=== PATIENT | female | born 1965 | race Caucasian/White ===

== ENCOUNTER 2016-06-08 22:33 | Inpatient (IN) | payer MEDICARE, MEDICAID ==
[~2016-06-08] VITALS: Ht 170.2 cm; Wt 131.6 kg
[2016-06-08] MEDS ORDERED: CEFTRIAXONE 1 GM VIAL ONE (23:55)
[2016-06-08] MEDS ORDERED: SODIUM CHLORIDE 0.9% 100 ML IV ONE (23:55)
[2016-06-09] VITALS (20 sets, daily range): BP systolic 115–180; RESP 13–22; TEMP 98–98.6; Ht 170.2 cm; Wt 131.6 kg
[2016-06-09] MEDS ORDERED: VANCOMYCIN 2,000 MG in SODIUM CHLORIDE 0.9% 500 ML IV ONE (00:29)
[2016-06-09] MEDS ORDERED: LEVOFLOXACIN 750 MG/150 ML 150 ML IV ONE (03:40)
[2016-06-09] MEDS ORDERED: GLUCAGON 1 MG VIAL IM PRN (07:00)
[2016-06-09] MEDS ORDERED: ACETAMINOPHEN 325 MG TAB PO PRN (07:00)
[2016-06-09] MEDS ORDERED: PHARMACY TO DOSE VANCOMYCIN IV SCH (07:00)
[2016-06-09] MEDS ORDERED: PHARMACY TO DOSE LEVAQUIN IV SCH (07:00)
[2016-06-09] MEDS ORDERED: DEXTROSE 50% SYRINGE 50 ML IV PRN (07:00)
[2016-06-09] MEDS ORDERED: BACITRACIN 50,000 UNITS INJ IRRIG ONE ×2 (07:45→10:41)
[2016-06-09] MEDS ORDERED: GLYCOPYRROLATE 0.2 MG/ML VIAL IV ONE ×3 (07:47→14:55)
[2016-06-09] MEDS ORDERED: ROCURONIUM 50 MG VIAL IV ONE ×2 (07:47→10:45)
[2016-06-09] MEDS ORDERED: ONDANSETRON 4 MG VIAL IV PUSH ONE ×2 (07:47→10:45)
[2016-06-09] MEDS ORDERED: FENTANYL 100 MCG/2 ML AMP IV ONE ×2 (07:47→10:45)
[2016-06-09] MEDS ORDERED: PROPOFOL 20 ML PER ML IV ONE ×2 (07:47→10:45)
[2016-06-09] MEDS ORDERED: NEOSTIGMINE 10 MG/10 ML VIAL IV ONE ×2 (07:47→10:45)
[2016-06-09] MEDS ORDERED: SODIUM CHLORIDE 0.9% 1,000 ML IV SCH (08:20)
[2016-06-09] MEDS ORDERED: ACETAMINOPHEN 1,000 MG/100 ML IV ONE (10:45)
[2016-06-09] MEDS ORDERED: DEXAMETHASONE 4 MG/ML VIAL IV ONE (10:45)
[2016-06-09] MEDS ORDERED: PHENYLEPHRINE 10 MG/ML VIAL IV ONE (10:45)
[2016-06-09] MEDS ORDERED: EPOETIN 4,000 UNIT VIAL IV SCH (11:00)
[2016-06-09] MEDS ORDERED: MIDAZOLAM 2 MG/2 ML INJ IV ONE (14:55)
[2016-06-09] MEDS ORDERED: LACT RINGERS 1,000 ML IV SCH (14:55)
[2016-06-09] MEDS ORDERED: LIDOCAINE 1% BUFFERED 1 ML SYR INTRADERM PRN (14:55)
[2016-06-09] MEDS: LORAZEPAM 0.5 MG TAB PO ONE ×2 (18:22→18:23)
[2016-06-09] MEDS ORDERED: hePARIN 1,000 UNITS/ML (PORCINE) 10 ML ONE (19:30)
[2016-06-09] MEDS ORDERED: MEPERIDINE 25 MG/ML IV PRN (20:20)
[2016-06-09] MEDS ORDERED: OXYCODONE 5 MG TAB PO PRN (20:20)
[2016-06-09] MEDS ORDERED: MORPHINE 4 MG/ML SYR IV PRN (20:20)
[2016-06-09] MEDS ORDERED: MORPHINE 2 MG/ML SYR IV PRN (20:20)
[2016-06-09] MEDS ORDERED: ONDANSETRON 4 MG VIAL IV PRN (20:20)
[2016-06-09] MEDS ORDERED: DILAUDID 1 MG/ML AMP ONE (20:50)
[2016-06-09] MEDS: DILAUDID 1 MG/ML AMP IV PRN ×2 (20:53→20:59)
[2016-06-09] MEDS: ONDANSETRON 4 MG VIAL IV PUSH PRN (22:27)
[2016-06-09] MEDS ORDERED: VANCOMYCIN 500 MG in SODIUM CHLORIDE 0.9% 100 ML IV ONE (23:50)
[2016-06-10] VITALS (7 sets, daily range): BP systolic 109–148; RESP 18–20; TEMP 98.3–99.1
[2016-06-10] MEDS ORDERED: PROMETHAZINE 25 MG/ML VIAL ONE (00:40)
[2016-06-10] MEDS: DILAUDID 1 MG/ML AMP IV PRN ×2 (05:47→18:38)
[2016-06-10] MEDS ORDERED: VANCOMYCIN 500 MG in SODIUM CHLORIDE 0.9% 100 ML IV ONE (09:40)
[2016-06-10] MEDS: ACETAMINOPHEN 325 MG TAB PO SCH ×2 (13:00→19:00)
[2016-06-10] MEDS: LEVOFLOXACIN 500 MG/100 ML 100 ML IV SCH (22:02)
[2016-06-11] VITALS (7 sets, daily range): BP systolic 109–150; RESP 16–20; TEMP 97.5–98.9
[2016-06-11] MEDS: ACETAMINOPHEN 325 MG TAB PO SCH ×4 (01:00→18:29)
[2016-06-11] MEDS: DILAUDID 1 MG/ML AMP IV PRN ×2 (02:50→16:30)
[2016-06-11] MEDS: **NOTE TO NURSE XX SCH (12:15)
[2016-06-11] MEDS ORDERED: VANCOMYCIN 500 MG in SODIUM CHLORIDE 0.9% 100 ML IV ONE (16:00)
[2016-06-12] VITALS (16 sets, daily range): BP systolic 112–135; RESP 13–18; TEMP 97.4–98.5
[2016-06-12] MEDS: **NOTE TO NURSE XX SCH (00:15)
[2016-06-12] MEDS: DILAUDID 1 MG/ML AMP IV PRN ×4 (00:20→17:48)
[2016-06-12] MEDS: ACETAMINOPHEN 325 MG TAB PO SCH ×4 (01:00→19:00)
[2016-06-12] MEDS ORDERED: PROMETHAZINE 25 MG/ML VIAL IV ONE (09:25)
[2016-06-12] MEDS ORDERED: MORPHINE 2 MG/ML SYR IV PRN (15:25)
[2016-06-12] MEDS ORDERED: MEPERIDINE 25 MG/ML IV PRN (15:25)
[2016-06-12] MEDS ORDERED: MORPHINE 4 MG/ML SYR IV PRN (15:25)
[2016-06-12] MEDS ORDERED: OXYCODONE 5 MG TAB PO PRN (15:25)
[2016-06-12] MEDS ORDERED: ONDANSETRON 4 MG VIAL IV PRN (15:25)
[2016-06-12] MEDS ORDERED: MORPHINE 2 MG/ML SYR IV ONE (18:20)
[2016-06-12] MEDS: ONDANSETRON 4 MG VIAL IV PUSH PRN ×2 (18:22→21:34)
[2016-06-12] MEDS: MORPHINE 50 MG/50 ML PCA BAG IV SCH (18:50)
[2016-06-12] MEDS: LEVOFLOXACIN 500 MG/100 ML 100 ML IV SCH (21:35)
[2016-06-13] VITALS (7 sets, daily range): BP systolic 96–143; RESP 16–18; TEMP 97.4–97.9
[2016-06-13] MEDS: ACETAMINOPHEN 325 MG TAB PO SCH ×4 (01:00→15:23)
[2016-06-13] MEDS: MORPHINE 50 MG/50 ML PCA BAG IV SCH (05:45)
[2016-06-13] MEDS ORDERED: [UNRECOGNIZED DRUG - OTHER] TOPICAL PRN (10:15)
[2016-06-13] MEDS ORDERED: DILAUDID 1 MG/ML AMP IV PRN (11:25)
[2016-06-13] MEDS: ONDANSETRON 4 MG VIAL IV PUSH PRN ×2 (14:16→22:11)
[2016-06-14] MEDS: ACETAMINOPHEN 325 MG TAB PO SCH ×3 (00:14→13:00)
[2016-06-14 03:37] VITALS: BP_SYST 121; RESP 16; TEMP 97.9
[2016-06-14] MEDS: ONDANSETRON 4 MG VIAL IV PUSH PRN (03:42)
[2016-06-14 09:18] VITALS: BP_SYST 123; RESP 16; TEMP 98.6
[2016-06-14 11:27] VITALS: BP_SYST 96; RESP 18; TEMP 97
[2016-06-14 14:20] VITALS: BP_SYST 96; RESP 18; TEMP 97
[2016-06-14] MEDS ORDERED: VANCOMYCIN 750 MG in SODIUM CHLORIDE 0.9% 250 ML IV ONE (15:10)
[2016-06-14 15:36] VITALS: BP_SYST 106; RESP 16; TEMP 97.8
== END 2016-06-14 22:34 | DRG 239 ==
LOC: ENRESERVTM → ENRESERV → ENRESERVDT → ER 22:33 → ENPENDDIS 06-09 02:07 → EMR 06-09 02:07 → PCU2 06-09 03:10 → SDS 06-12 12:32 → PCU2 06-12 12:42 → 5THW 06-12 18:15
PROVIDERS: ADMIT Internal Medicine Nephrology; ATTEND Internal Medicine Nephrology
PROC: 0Y6J0Z3 Detachment at Left Lower Leg, Low, Open Approach (ICD-10-PCS; principal; 2016-06-09 19:43)
PROC: 0Y6J0Z1 Detachment at Left Lower Leg, High, Open Approach (ICD-10-PCS; 2016-06-12)
DX: E11.52 Type 2 diabetes mellitus with diabetic peripheral angiopathy with gangrene (principal); N18.6 End stage renal disease; I13.2 Hypertensive heart and chronic kidney disease with heart failure and with stage 5 chronic kidney disease, or end stage renal disease; E87.2 Acidosis; I50.32 Chronic diastolic (congestive) heart failure; E11.65 Type 2 diabetes mellitus with hyperglycemia; E11.22 Type 2 diabetes mellitus with diabetic chronic kidney disease; Z91.15 Patient's noncompliance with renal dialysis; D63.1 Anemia in chronic kidney disease; E87.5 Hyperkalemia; J38.3 Other diseases of vocal cords; E11.622 Type 2 diabetes mellitus with other skin ulcer; L98.499 Non-pressure chronic ulcer of skin of other sites with unspecified severity
CPT/HCPCS: 36415; 71010; 80048; 80053; 80069; 80202; 81001; 82947; 83540; 83605; 83880; 84466; 85025; 85610; 85652; 85730; 87040; 87071; 87075; 87077; 87088; 87186; 87340; 88307; 88311; 93922; 96365; 96366; 96367

== ENCOUNTER 2016-06-25 00:18 | Inpatient (IN) | payer MEDICARE, MEDICAID ==
[~2016-06-25] VITALS: Ht 170.2 cm; Wt 86.9 kg
[2016-06-25] MEDS ORDERED: ONDANSETRON 4 MG VIAL ONE ×2 (01:32→07:13)
[2016-06-25] MEDS ORDERED: PROMETHAZINE 25 MG/ML VIAL ONE (04:16)
[2016-06-25] MEDS ORDERED: SODIUM CHLORIDE 0.9% 50 ML IV ONE ×2 (04:17→07:23)
[2016-06-25] MEDS ORDERED: PANTOPRAZOLE 40 MG VIAL IV ONE (07:24)
[2016-06-25] MEDS ORDERED: SALINE FLUSH 10 ML FLUSH PRN (07:40)
[2016-06-25] MEDS ORDERED: GLUCAGON 1 MG VIAL IM PRN (07:40)
[2016-06-25] MEDS ORDERED: PROMETHAZINE 25 MG/ML VIAL IV PRN (07:40)
[2016-06-25] MEDS ORDERED: ACETAMINOPHEN 325 MG TAB PO PRN (07:40)
[2016-06-25] MEDS ORDERED: ALU/MAG/SIM 30 ML UDC PO PRN (07:40)
[2016-06-25] MEDS ORDERED: DEXTROSE 50% SYRINGE 50 ML IV PRN (07:40)
[2016-06-25] MEDS: METOPROLOL XL 25 MG TAB PO SCH (09:00)
[2016-06-25] MEDS: PANTOPRAZOLE 40 MG VIAL IV SCH (09:00)
[2016-06-25] MEDS: SALINE FLUSH 10 ML FLUSH SCH ×2 (09:30→22:21)
[2016-06-25 10:17] VITALS: BP_SYST 158; RESP 18; TEMP 98.6
[2016-06-25 10:22] VITALS: BMI 30.7
[2016-06-25] MEDS: DOCUSATE SOD 100 MG CAP PO SCH ×2 (11:37→20:51)
[2016-06-25] MEDS ORDERED: SODIUM CHLORIDE 0.9% 1,000 ML IV SCH (11:40)
[2016-06-25 11:46] VITALS: Ht 170.2 cm; Wt 86.9 kg
[2016-06-25] MEDS: POLYETHYLENE GLYCOL 17 GM PACKET PO SCH ×2 (14:01→20:51)
[2016-06-25 14:53] VITALS: BP_SYST 123; RESP 18; TEMP 98.2
[2016-06-25] MEDS: ONDANSETRON 4 MG VIAL IV PUSH PRN ×2 (18:32→23:18)
[2016-06-25] MEDS: DILAUDID 1 MG/ML AMP IV PRN ×2 (18:33→23:18)
[2016-06-25 19:29] VITALS: BP_SYST 118
[2016-06-25] MEDS ORDERED: MISSING DOSE XX ONE (20:45)
[2016-06-25 22:55] VITALS: BP_SYST 140; RESP 18
[2016-06-25 23:42] VITALS: TEMP 98
[2016-06-26] MEDS: SODIUM CHLORIDE 0.9% FLUSH BAG 500 ML IV SCH (02:35)
[2016-06-26] MEDS: DILAUDID 1 MG/ML AMP IV PRN ×4 (03:28→19:52)
[2016-06-26 03:54] VITALS: BP_SYST 118; RESP 18; TEMP 97.8
[2016-06-26 07:44] VITALS: BP_SYST 158; RESP 18; TEMP 98
[2016-06-26] MEDS: PANTOPRAZOLE 40 MG VIAL IV SCH (08:19)
[2016-06-26] MEDS: DOCUSATE SOD 100 MG CAP PO SCH ×2 (08:19→21:30)
[2016-06-26] MEDS: METOPROLOL XL 25 MG TAB PO SCH (08:20)
[2016-06-26] MEDS: ONDANSETRON 4 MG VIAL IV PUSH PRN ×3 (08:20→19:51)
[2016-06-26] MEDS: POLYETHYLENE GLYCOL 17 GM PACKET PO SCH ×2 (08:22→21:30)
[2016-06-26] MEDS: SALINE FLUSH 10 ML FLUSH SCH ×2 (08:31→20:16)
[2016-06-26 11:21] VITALS: BP_SYST 140; RESP 18; TEMP 98.2
[2016-06-26 19:36] VITALS: BP_SYST 106; RESP 16; TEMP 97.8
[2016-06-26 20:09] VITALS: BP_SYST 133; RESP 16; TEMP 98.2
[2016-06-26] MEDS: LACTULOSE SOLN 20GM/30ML UDC PO PRN (21:30)
[2016-06-26 23:47] VITALS: BP_SYST 116; RESP 16; TEMP 98.7
[2016-06-27 03:06] VITALS: BP_SYST 163; RESP 18; TEMP 98.9
[2016-06-27] MEDS: DILAUDID 1 MG/ML AMP IV PRN ×2 (03:07→09:33)
[2016-06-27] MEDS: ONDANSETRON 4 MG VIAL IV PUSH PRN ×3 (03:07→18:41)
[2016-06-27] MEDS: SODIUM CHLORIDE 0.9% FLUSH BAG 500 ML IV SCH (05:43)
[2016-06-27 07:55] VITALS: BP_SYST 120; RESP 16; TEMP 98.6
[2016-06-27] MEDS: METOPROLOL XL 25 MG TAB PO SCH (09:00)
[2016-06-27] MEDS: DOCUSATE SOD 100 MG CAP PO SCH ×2 (09:27→21:00)
[2016-06-27] MEDS: PANTOPRAZOLE 40 MG VIAL IV SCH (09:27)
[2016-06-27] MEDS: POLYETHYLENE GLYCOL 17 GM PACKET PO SCH ×2 (09:28→21:00)
[2016-06-27] MEDS: SALINE FLUSH 10 ML FLUSH SCH ×2 (09:28→23:01)
[2016-06-27] MEDS: LACTULOSE SOLN 20GM/30ML UDC PO PRN (10:57)
[2016-06-27 11:44] VITALS: BP_SYST 160; RESP 16; TEMP 98.4
[2016-06-27 15:00] VITALS: BP_SYST 150; RESP 16; TEMP 98
[2016-06-27] MEDS ORDERED: FLEET ENEMA 132 ML BTL RECTAL ONE (15:30)
[2016-06-27 19:46] VITALS: BP_SYST 120; RESP 16; TEMP 98.1
[2016-06-27 23:27] VITALS: BP_SYST 134; RESP 18; TEMP 97.8
[2016-06-28] MEDS: ONDANSETRON 4 MG VIAL IV PUSH PRN ×2 (02:17→10:59)
[2016-06-28] MEDS: SODIUM CHLORIDE 0.9% FLUSH BAG 500 ML IV SCH (04:23)
[2016-06-28 05:20] VITALS: BP_SYST 98; RESP 18; TEMP 97.4
[2016-06-28 05:47] VITALS: BP_SYST 120; RESP 18; TEMP 97.6
[2016-06-28] MEDS ORDERED: PANTOPRAZOLE 40 MG TAB PO SCH (07:00)
[2016-06-28 08:08] VITALS: BP_SYST 110; RESP 18; TEMP 97
[2016-06-28] MEDS: POLYETHYLENE GLYCOL 17 GM PACKET PO SCH (09:00)
[2016-06-28] MEDS: METOPROLOL XL 25 MG TAB PO SCH (09:17)
[2016-06-28] MEDS: DOCUSATE SOD 100 MG CAP PO SCH (09:17)
[2016-06-28] MEDS: SALINE FLUSH 10 ML FLUSH SCH (09:18)
[2016-06-28 10:41] VITALS: BP_SYST 110; RESP 18; TEMP 97
== END 2016-06-28 12:08 | disposition home health service (06) | DRG 388 ==
LOC: ENRESERVTM → ENRESERVDT → ER 00:18 → ENPENDDIS 07:38 → EMR 07:38 → 4THE 08:44
PROVIDERS: ADMIT Internal Medicine Nephrology; ATTEND Internal Medicine Nephrology
PROC: 5A1D00Z (ICD-10-PCS; principal; 2016-06-26)
DX: K56.41 Fecal impaction (principal); N18.6 End stage renal disease; I13.2 Hypertensive heart and chronic kidney disease with heart failure and with stage 5 chronic kidney disease, or end stage renal disease; E11.22 Type 2 diabetes mellitus with diabetic chronic kidney disease; I50.32 Chronic diastolic (congestive) heart failure; K29.00 Acute gastritis without bleeding; Z99.2 Dependence on renal dialysis; Z89.512 Acquired absence of left leg below knee; F41.9 Anxiety disorder, unspecified; D63.1 Anemia in chronic kidney disease; Z79.82 Long term (current) use of aspirin; Z87.442 Personal history of urinary calculi
CPT/HCPCS: 36415; 71010; 74176; 80053; 82271; 82553; 82947; 83605; 84484; 85025; 85610; 86850; 86900; 86901; 87040; 87493; 93005; 96365; 96367; 96375; 96376